=== PATIENT | female | born 1990 | race Native Hawaiian/Other Pacific Islander ===

== ENCOUNTER 2016-11-13 19:29 | Emergency (ER) | payer OTHER ==
[~2016-11-13] VITALS: Ht 157.5 cm; Wt 55.3 kg
== END 2016-11-13 21:42 | disposition home or self-care (01) ==
LOC: ED 19:29
PROC: 0HQDXZZ Repair Right Lower Arm Skin, External Approach (ICD-10-PCS; principal; 2016-11-13)
DX: S51.811A Laceration without foreign body of right forearm, initial encounter (principal); X58.XXXA Exposure to other specified factors, initial encounter; Y92.098 Other place in other non-institutional residence as the place of occurrence of the external cause
CPT/HCPCS: 99284

== ENCOUNTER 2017-03-05 12:30 | Emergency (ER) | payer OTHER ==
[~2017-03-05] VITALS: Ht 157.5 cm; Wt 59.0 kg
== END 2017-03-05 14:03 | disposition home or self-care (01) ==
LOC: ED 12:30
DX: B34.9 Viral infection, unspecified (principal); J06.9 Acute upper respiratory infection, unspecified
CPT/HCPCS: 94664; 99283

== ENCOUNTER 2017-10-27 08:33 | Emergency (ER) | payer OTHER ==
[~2017-10-27] VITALS: Ht 157.5 cm; Wt 55.3 kg
[2017-10-27 08:40] VITALS: TEMP 99
[2017-10-27 09:15] VITALS: BP 106/82
== END 2017-10-27 09:20 | disposition home or self-care (01) ==
LOC: ED 08:33
DX: L02.411 Cutaneous abscess of right axilla (principal)
CPT/HCPCS: 96372; 99283; J1885

== ENCOUNTER 2019-05-04 18:24 | Emergency (ER) | payer OTHER ==
[~2019-05-04] VITALS: Ht 157.5 cm; Wt 61.2 kg
[2019-05-04] MEDS ORDERED: ALPR0.2566 PO (18:51)
[2019-05-04] MEDS ORDERED: BUPR8SUB2 PO (18:51)
[2019-05-04 19:30] VITALS: BP 112/71; TEMP 100.8
== END 2019-05-04 19:30 | disposition home or self-care (01) ==
LOC: ED 18:24
DX: J11.1 Influenza due to unidentified influenza virus with other respiratory manifestations (principal)
CPT/HCPCS: 87502; 87651; 99283

== ENCOUNTER 2020-09-17 16:48 | Emergency (ER) | payer OTHER ==
[~2020-09-17] VITALS: Ht 154.9 cm; Wt 67.1 kg
[~2020-09-17 16:48] MED LIST: ALPR0.2566 PO; BUPR8SUB2 PO
[2020-09-17 16:53] VITALS: BP 107/72; TEMP 97.8
== END 2020-09-17 18:06 | disposition home or self-care (01) ==
LOC: ED 16:48
DX: J20.9 Acute bronchitis, unspecified (principal); F17.210 Nicotine dependence, cigarettes, uncomplicated; Z20.822 Contact with and (suspected) exposure to COVID-19
CPT/HCPCS: 87502; 87635; 99283; U0003

== ENCOUNTER 2020-12-16 10:33 | Outpatient (CLI) | payer OTHER | END 2020-12-16 23:08 | disposition home or self-care (01) | LOC: LAB 10:33 | PROVIDERS: ATTEND Nurse Practitioner | DX: Z11.52 Encounter for screening for COVID-19 (principal) | CPT/HCPCS: 87635; G2023; U0003 ==

== ENCOUNTER 2022-07-29 05:54 | Emergency (ER) | payer OTHER ==
[~2022-07-29] VITALS: Ht 157.5 cm; Wt 59.0 kg
[2022-07-29 07:20] VITALS: BP 128/98; TEMP 98.7
== END 2022-07-29 07:20 | disposition home or self-care (01) ==
LOC: ED 05:54
DX: J02.0 Streptococcal pharyngitis (principal); F17.210 Nicotine dependence, cigarettes, uncomplicated
CPT/HCPCS: 87651; 96372; 99282; J0696; J1885